=== PATIENT | female | born 1985 | race Caucasian/White ===

== ENCOUNTER 2018-02-18 10:03 | Inpatient (IN) | payer MEDICAID ==
[~2018-02-18 10:03] MED LIST: Acetaminophen 500 MG Tab PO ONE; Dexamethasone 4 MG/ML SDV ONE; Dextrose 5%-Lactated Ringers 1,000 ML IV SCH; Gabapentin 300 MG Cap PO ONE; Glycopyrrolate 0.2 MG/ML 5 ML MDV ONE; Neostigmine Methylsulfate 1 MG/ML 5 ML Syringe ONE; Ondansetron 4 MG/2 ML SDV ONE; Propofol 200 MG/20 ML SDV ONE; Rocuronium 50 MG/5 ML Vial ONE; Scopolamine 1.5 MG Transdermal Patch TOP ONE; Succinylcholine 200 MG/10 ML MDV ONE; cefOXitin 2 GM Vial ONE; cefOXitin 2 GM in Sodium Chloride 0.9% 50 ML IV ONE; fentaNYL 250 MCG/5 ML SDV ONE
[2018-02-18] MEDS ORDERED: Ketamine 500 MG/5 ML MDV IV SCH (11:15)
[2018-02-18] MEDS ORDERED: Lidocaine 0.4%/D5W 2 GM/500 ML BAG IV SCH (11:15)
[2018-02-18] MEDS ORDERED: Ropivacaine 58 ML, Dexamethasone 8 MG, EPINEPHrine 0.4 MG, Sodium Chloride 0.9% 19.6 ML NERVRT SCH ×4 (11:15)
[2018-02-18] MEDS ORDERED: Lidocaine 2% 100 MG/5 ML Syringe IVPUSH ONE (11:15)
[2018-02-18] MEDS ORDERED: Celecoxib 200 MG Cap PO ONE (13:12)
[2018-02-18] MEDS ORDERED: Lactated Ringers 1,000 ML ONE (14:07)
[2018-02-18] MEDS ORDERED: fentaNYL 250 MCG/5 ML SDV ONE (14:42)
[2018-02-18] MEDS ORDERED: Rocuronium 50 MG/5 ML Vial ONE ×2 (14:45)
[2018-02-18] MEDS ORDERED: Labetalol 20 MG/4 ML Syringe ONE (14:50)
[2018-02-18] MEDS ORDERED: hydrALAZINE 20 MG/ML SDV IVPUSH ONE (16:30)
[2018-02-18] MEDS ORDERED: hydrALAZINE 20 MG/ML SDV ONE (16:34)
[2018-02-18] MEDS: hydrALAZINE 20 MG/ML SDV IVPUSH ONE (16:40)
[2018-02-18] MEDS ORDERED: Metoclopramide 10 MG/2 ML SDV IVPUSH PRN (18:00)
[2018-02-18] MEDS ORDERED: Ondansetron 4 MG/2 ML SDV IVPUSH PRN (18:00)
[2018-02-18] MEDS ORDERED: MVI, Adult with Vitamin K 10 ML, Thiamine 200 MG, Chromium/Copper/Mang/Selen/Zn 1 ML in... IV SCH ×4 (18:00)
[2018-02-18] MEDS ORDERED: Labetalol 20 MG/4 ML Syringe IVPUSH PRN (18:00)
[2018-02-18] MEDS ORDERED: diphenhydrAMINE 50 MG/ML SDV IVPUSH PRN (18:00)
[2018-02-18] MEDS ORDERED: hydrOXYzine HCl 100 MG/2 ML SDV IM PRN (18:00)
[2018-02-18] MEDS ORDERED: HYDROmorphone/Normal Saline 15 MG/30 ML PCA IV SCH (18:30)
[2018-02-18] MEDS ORDERED: Pantoprazole 40 MG Vial IVPUSH SCH (20:00)
[2018-02-18] MEDS: Acetaminophen Soln 650 MG/20.3 ML UD Cup PO SCH (20:36)
[2018-02-18] MEDS: Gabapentin 250 MG/5 ML Solution ML 470 ML Bottle PO SCH (20:36)
[2018-02-18] MEDS: cefOXitin 2 GM in Sodium Chloride 0.9% 50 ML IV SCH (20:38)
[2018-02-18] MEDS: Heparin Sodium 5,000 Units/ML Vial SUBCUT SCH (20:45)
[2018-02-19] MEDS: Dextrose 5%-Lactated Ringers 1,000 ML IV SCH ×4 (00:47→21:05)
[2018-02-19] MEDS ORDERED: Iohexol 647 MG/ML 50 ML SDV PO SCH (01:45)
[2018-02-19] MEDS: Acetaminophen Soln 650 MG/20.3 ML UD Cup PO SCH ×4 (02:22→20:48)
[2018-02-19] MEDS: cefOXitin 2 GM in Sodium Chloride 0.9% 50 ML IV SCH ×3 (02:22→14:27)
[2018-02-19] MEDS ORDERED: Naloxone 0.4 MG/ML SDV IV PRN (07:10)
[2018-02-19] MEDS ORDERED: Ondansetron 4 MG Tab.DIS PO PRN (07:20)
[2018-02-19] MEDS: hydrALAZINE 20 MG/ML SDV IVPUSH ONE (07:58)
--- NOTE | 2018-02-19 08:53 | PN ---
DATE OF SERVICE: 02/19/2018 HISTORY OF PRESENT ILLNESS: Haydee is postoperative day #1, her upper GI was normal. She is using a PHYSICAL SCIENCE TECHNICIAN for pain. She rests in between using her PHYSICAL SCIENCE TECHNICIAN, but wakes up with increased amount of pain. Oral intake was not recorded. Urine output 3300. CHRISTOPHER put out 90 mL of a light pink serosanguineous drainage. REVIEW OF SYSTEMS: Remainder of review of systems negative for any pertinent positives and negatives. OBJECTIVE: GENERAL: Haydee is a 33-year-old female. VITAL SIGNS: Last temperature was 02/18/2018 at 2300 hours. Vitals at 0600 hours; pulse 106, respirations 16, blood pressure 130/63, and O2 saturations by pulse oximetry is 94% on 2 L of O2. HEENT: Negative. NECK: Supple. HEART: Regular rate and rhythm. LUNGS: Clear. ABDOMEN: Dressing dry and intact. CHRISTOPHER drain is intact. EXTREMITIES: Without peripheral edema. SCDs are on. ASSESSMENT: Laparoscopic Cain-en-Y gastric bypass surgery, liver biopsy, repair of diaphragmatic hernia for morbid obesity, hepatomegaly and diaphragmatic hernia. Rayo Crow MD, surgeon. Date of surgery 02/18/2018. PLAN: 1. Decrease IV to 100 mL per hour. 2. Step-2 gastric bypass diet with no cereal. 3. Communication orders, 3 med cups per hour or one q.20 minutes record at bedside. 4. Discontinue PHYSICAL SCIENCE TECHNICIAN and continuous pulse ox. 5. Dilaudid 2 mg p.o. q.4 hours p.r.n. pain. 6. Zofran ODT 4 mg p.o. q.4 hours p.r.n. nausea and vomiting. 7. Good pulmonary toilet. Ambulate at least 6 times daily. 8. We will evaluate p.r.n. or in a.m. Natalie Shah PA-C /[id number]
[2018-02-19] MEDS: Gabapentin 250 MG/5 ML Solution ML 470 ML Bottle PO SCH ×3 (09:35→20:48)
[2018-02-19] MEDS: Heparin Sodium 5,000 Units/ML Vial SUBCUT SCH ×2 (09:35→20:47)
[2018-02-19] MEDS: HYDROmorphone 2 MG Tab PO PRN ×3 (10:28→20:47)
[2018-02-19] MEDS: Celecoxib 200 MG Cap PO SCH (10:31)
--- NOTE | 2018-02-19 10:55 | CR ---
UGI wo KUB HISTORY: eval R -Y GBP FINDINGS: After administration of oral contrast, upright views were obtained. Post operative changes gastric bypass. Surgical drains in place. No evidence for leak. Contrast passes freely into proximal small bowel loops. IMPRESSION: No evidence for leak or obstruction.
[2018-02-19] MEDS: SCOPOLAMINE PATCH CHECK TOP SCH (11:39)
[2018-02-19] MEDS ORDERED: MVI, Adult with Vitamin K 10 ML, Thiamine 200 MG, Chromium/Copper/Mang/Selen/Zn 1 ML in... IV SCH ×4 (16:00)
[2018-02-19] MEDS ORDERED: Pantoprazole 40 MG Delayed-Release Granules 1 Packet PO SCH (20:00)
[2018-02-20] MEDS: Acetaminophen Soln 650 MG/20.3 ML UD Cup PO SCH ×2 (02:17→07:57)
[2018-02-20] MEDS: HYDROmorphone 2 MG Tab PO PRN (07:56)
[2018-02-20] MEDS: Celecoxib 200 MG Cap PO SCH (07:57)
[2018-02-20] MEDS: Gabapentin 250 MG/5 ML Solution ML 470 ML Bottle PO SCH (08:32)
[2018-02-20] MEDS: Heparin Sodium 5,000 Units/ML Vial SUBCUT SCH (08:32)
[2018-02-20] MEDS: SCOPOLAMINE PATCH CHECK TOP SCH (08:35)
[2018-02-20] MEDS ORDERED: Cyanocobalamin (Vitamin B12) 1,000 MCG/ML SDV IM ONE (09:00)
[2018-02-20] MEDS ORDERED: Magnesium Hydroxide 400 MG/5 ML Susp 30 ML Cup PO PRN (10:15)
--- NOTE | 2018-02-21 11:42 | DISCH ---
FINAL DIAGNOSES: 1. Morbid obesity. 2. Marked hepatomegaly. 3. Paraesophageal diaphragmatic hernia. 4. History of gastroesophageal reflux disease. 5. Hyperlipidemia. OPERATIVE PROCEDURES: This was done on 02/18/2018, diagnostic laparoscopy with: A. Laparoscopic Cain-en-Y gastric bypass along with gastroenterostomy. B. Chris-Cut needle liver biopsy. C. Repair of paraesophageal diaphragmatic hernia. SUMMARY: This 33-year-old female with a long-standing morbid obesity presenting with desire for proceeding with gastric bypass. After preoperative evaluation and discussion, she wished to proceed and the procedure was done on the date of admission along with liver biopsy diaphragmatic hernia. Postoperatively, no major problems have been noted. She is tolerating the current medical regimen satisfactorily and step-2 diet. She preoperatively was only on Tylenol. She continued to have p.r.n. basis and also given a prescription for Celebrex 200 mg p.o. daily x2 weeks #14 and Dilaudid 2 to 4 mg p.o. q.4 hours p.r.n. pain #40. She will be following up with Natalie Shah at [facility] in [place] on 03/02/2018.
--- NOTE | 2018-02-22 08:53 | OR ---
DATE OF PROCEDURE: 02/18/2018 PREOPERATIVE DIAGNOSIS: Morbid obesity. POSTOPERATIVE DIAGNOSES: 1. Morbid obesity. 2. Marked hepatomegaly. 3. Paraesophageal diaphragmatic hernia. OPERATIVE PROCEDURE: 1. Laparoscopic Cain-en-Y gastric bypass with long-limb gastroenterostomy (75810). 2. Chris-Cut needle liver biopsy (16165). 3. Repair of paraesophageal diaphragmatic hernia (87744). ANESTHESIA: General. HYDROGEN OPERATOR: Natalie Shah PA-C. INDICATIONS FOR PROCEDURE: This is a 33-year-old female presenting with a longstanding history of morbid obesity, increasingly significant comorbidities. After preoperative evaluation and discussion, she wished to proceed with a gastric bypass procedure. Potential risks including bleeding, infection, leaks from various GI tract closures, problems with bowel obstruction over time, as well as possibility of cardiopulmonary, septic, or hemorrhagic complications leading to were all discussed, and the patient wishes to proceed. PROCEDURE IN DETAIL: The patient was taken to the operating room and placed in a supine position. After general endotracheal anesthesia was induced, she was converted to a lithotomy position. An orogastric tube was placed and the abdomen was prepped and draped. At 15 cm inferior and 5 cm left of the xiphoid process, a transverse incision was made, and the peritoneal cavity entered under direct vision with an Optiview trocar and inflated to 15 mmHg pressure with CO2. Laparoscope was then reinserted. No underlying trocar insertion site injuries were seen. Following this, bilateral subcostal transversus abdominis plane blocks were placed with visualization of the needle in the correct plane and injection of the standard solution bilaterally. At this point, 5 additional trocars were placed across the upper mid abdomen and general exploration was undertaken. The patient was noted to have a marked hepatomegaly with liver being grossly fatty infiltrated. Chris-Cut needle biopsies were obtained from left lobe of the liver. Minimal bleeding from the biopsy sites was controlled with electrocautery. The omentum was then divided in the midline up to the level of the transverse colon. This allowed identification of the small bowel to the ligament of Treitz. Small bowel was then traced out 150 cm distal to that point, where it was divided transversely with a PALLAVI stapler. Small bowel was then traced out an additional 150 cm where the [id number] enteroenterostomy was accomplished with internal firing of the Endo-PALLAVI 60 mm stapler. The common opening was then closed transversely with the same stapler and the angles anastomosed, and mesenteric defect approximated with some 0 Ethibond stitch along with fibrin sealant. The divided end of the Cain limb was then from the mesentery first for a few centimeters, which allowed an antecolic position of the Cain limb up to the level of the gastroesophageal junction without tension. At this point, the liver was retracted anteriorly. The patient was noted to have a moderate- sized paraesophageal diaphragmatic hernia, which contained some omentum as well as perigastric fat and a portion of the gastric fundus in a plane anterior to the course of the esophagus. This was reduced. The peritoneum overlying incised and reflected downward. An anterior repair of the diaphragmatic hernia was then accomplished with 0 Ethibond sutures reinforced with PTFE pledgets. The gastrointestinal cavity was inflated to 15 mL and pulled up snugly against the EG junction. The gastric wall over the apex balloon was then marked with electrocautery and balloon catheter deflated and pulled up from the esophagus. The lesser omental tissue adjacent to the gastric cardia was then incised allowing dissection behind the stomach at that level. The pouch formation was initiated with cauterized arnie on the gastric cardia with transverse firing of the PALLAVI stapler. The pouch was then completed with additional firings of PALLAVI stapler up to and through the angle of His. Upon completion of the pouch, both staple lines were noted to be intact. The anvil of a 25 mm EEA stapler was then attached to a Linton sump type tube. The latter was brought down through the mouth and taken out through a small opening in the gastric pouch. This then allowed the anvil likewise to be pulled down to within the gastric pouch. Divided end of the Cain limb was then opened and the main body of the EEA stapler was passed several centimeters into the lumen of small bowel, brought out the anvil and united with it, thus creating the gastrojejunostomy. Upon removal of the stapler, double donuts of mucosa were noted within it and the small bowel was closed off with a vascular staple line. The gastrojejunostomy was reinforced with some 3-0 Vicryl seromuscular stitch along with fibrin sealant. A leak test was conducted with injection of 120 mL of air into the gastric pouch while submerged with cefoxitin-containing saline solution. No leaks were identified. A single Horacio-Whipple drain was then taken out through the left lateral trocar site and positioned adjacent to the gastrojejunostomy and up into the splenic fossa. Trocars were then removed, the peritoneal cavity deflated. The incision was closed with 4-0 Vicryl subcuticular stitch, which was also used to fix the drain. The patient was taken to the recovery room in satisfactory condition. Physician pier master assistant, Natalie Shah, played an essential role in assisting in this case, helping to position the patient, retract structures as needed, as well as suturing and cutting sutures when indicated. Her presence improved patient safety and decreased the operative time. Rayo Crow MD /[id number]
== END 2018-02-20 10:50 | disposition home or self-care (01) | DRG 620 ==
LOC: JP.MS 10:03 → JP.SDS 10:03 → EDSTATUS 11:00 → JP.2SS 16:30
PROVIDERS: ADMIT Surgery; ATTEND Surgery
PROC: 0D164ZA Bypass Stomach to Jejunum, Percutaneous Endoscopic Approach (ICD-10-PCS; principal; 2018-02-18)
PROC: 0FB24ZX Excision of Left Lobe Liver, Percutaneous Endoscopic Approach, Diagnostic (ICD-10-PCS; 2018-02-18)
PROC: 0BQT4ZZ Repair Diaphragm, Percutaneous Endoscopic Approach (ICD-10-PCS; 2018-02-18)
PROC: 3E0T3BZ Introduction of Anesthetic Agent into Peripheral Nerves and Plexi, Percutaneous Approach (ICD-10-PCS; 2018-02-18)
DX: E66.01 Morbid (severe) obesity due to excess calories (principal); K44.0 Diaphragmatic hernia with obstruction, without gangrene; Z68.42 Body mass index [BMI] 45.0-49.9, adult; R16.0 Hepatomegaly, not elsewhere classified; K76.0 Fatty (change of) liver, not elsewhere classified; E78.5 Hyperlipidemia, unspecified; K21.9 Gastro-esophageal reflux disease without esophagitis; Z86.32 Personal history of gestational diabetes; Z97.5 Presence of (intrauterine) contraceptive device
CPT/HCPCS: 36415; 74240; 74240-26; 80053; 83735; 84100; 84703; 85027; 86850; 86900; 86901; 88307; 88313; 94762; A9270-GY; C9113; J0171; J0330; J0360; J0694; J1100; J1170; J1644; J2001; J2405; J2704; J2710; J2795; J3010; J3410; J3411; J3420; J3490; J7030; J7042; J7050; J7120; Q9967

== ENCOUNTER 2021-03-11 05:54 | Day surgery (SDC) | payer MEDICAID ==
[~2021-03-11 05:54] MED LIST changes: -Acetaminophen 500 MG Tab PO ONE; -Dexamethasone 4 MG/ML SDV ONE; -Dextrose 5%-Lactated Ringers 1,000 ML IV SCH; -Gabapentin 300 MG Cap PO ONE; -Glycopyrrolate 0.2 MG/ML 5 ML MDV ONE; +Lactated Ringers 1,000 ML IV ONE; -Neostigmine Methylsulfate 1 MG/ML 5 ML Syringe ONE; -Ondansetron 4 MG/2 ML SDV ONE; -Propofol 200 MG/20 ML SDV ONE; -Rocuronium 50 MG/5 ML Vial ONE; -Scopolamine 1.5 MG Transdermal Patch TOP ONE; -Succinylcholine 200 MG/10 ML MDV ONE; -cefOXitin 2 GM Vial ONE; -cefOXitin 2 GM in Sodium Chloride 0.9% 50 ML IV ONE; -fentaNYL 250 MCG/5 ML SDV ONE
[2021-03-11] MEDS ORDERED: Lactated Ringers 1,000 ML IV ONE (06:45)
[2021-03-11] MEDS ORDERED: Cyanocobalamin (Vitamin B12) 1,000 MCG/ML SDV IM ONE (07:00)
[2021-03-11] MEDS ORDERED: Propofol 200 MG/20 ML SDV ONE (07:07)
[2021-03-11] MEDS ORDERED: Midazolam 1 MG/ML 2 ML SDV ONE (07:07)
[2021-03-11] MEDS ORDERED: fentaNYL 100 MCG/2 ML SDV ONE (07:07)
[2021-03-11] MEDS ORDERED: Glycopyrrolate 0.2 MG/ML 2 ML SDV IVPUSH ONE (07:15)
[2021-03-11] MEDS ORDERED: MVI, Adult with Vitamin K 10 ML, Thiamine 200 MG, Zinc/Copper/Manganese/Selenium 1 ML i... IV ONE ×4 (08:00)
[2021-03-11] MEDS ORDERED: hydrOXYzine HCL 100 MG/2 ML SDV IM ONE (09:28)
[2021-03-11] MEDS ORDERED: ferumoxytoL 510 MG in Sodium Chloride 0.9% 100 ML IV ONE (09:30)
[2021-03-11] MEDS ORDERED: Iopamidol 612 MG/ML 500 ML Multipack Bottle IV ONE (10:50)
[2021-03-11] MEDS ORDERED: Sodium Chloride 0.9% 10 ML Syringe FLUSH ONE (10:50)
--- NOTE | 2021-03-11 11:56 | CT ---
Abdomen Pelvis w Cont CLINICAL HISTORY: Abdominal pain post EGD COMPARISON: None. TECHNIQUE: Transverse scans were obtained from the base of the lungs to the pubic symphysis following oral contrast and IV infusion of contrast.Auto dosage reduction and iterative reconstructiontechniques employed. FINDINGS: Patient is status post gastric bypass with Cain-en-Y. There is some fluid in the excluded portion of the stomach. There is gaseous distention of small bowel. This likely related to recent EGD. The lung bases are clear. There is a 3.2 x 2.8 x 2.9 cm low-attenuation slightly heterogeneous mass in the anterior segment of the right lobe of the liver. There are some internal vessels. The gallbladder is mildly distended. The spleen has normal size and shape. The pancreas shows no mass or inflammatory change. The adrenal glands appear normal bilaterally . The kidneys show no mass, stones or hydronephrosis. The ureters have a normal course and caliber. The bladder has a normal contour. The uterus is enlarged measuring 10.9 x 5.1 x 5.8 cm no free fluid is seen.. The aorta has a normal contour. There is no suspicious retroperitoneal adenopathy. IMPRESSION: Previous gastric bypass with Cain-en-Y Moderate small bowel distention likely related to recent EGD. There is some fecal retention 3.2 x 2.8 x 2.9 cm low-attenuation focus in the right lobe of the liver. This may represent a hemangioma. This should be correlated with ultrasound. Nonspecific distention of the gallbladder
--- NOTE | 2021-03-11 14:25 | OR ---
DATE OF PROCEDURE: 03/11/2021 SURGEON: Rayo Crow MD PREOPERATIVE DIAGNOSIS: Upper abdominal pain. POSTOPERATIVE DIAGNOSIS: Upper abdominal pain associated with normal upper GI endoscopic examination, status post Cain-en-Y gastric bypass. OPERATIVE PROCEDURE: Upper GI endoscopy with biopsy of gastric pouch for CLOtest. ANESTHESIA: IV sedation. INDICATION FOR PROCEDURE: A 36-year-old status post Cain-en-Y gastric bypass in 2018, presenting with some ongoing upper abdominal pain. The patient had been on some ibuprofen previously. Presently, she is on omeprazole 40 mg daily, and despite this, she has ongoing pain. She is referred for upper GI endoscopy at this time. Potential risks including bleeding and perforation were discussed, and the patient wishes to proceed. DETAILS OF PROCEDURE: The patient was taken to the operating room, placed in a left lateral decubitus position. IV sedation was administered, after which the upper GI endoscope was passed orally through the length of the esophagus and into the gastric pouch, from there through the gastrojejunostomy roughly 20 cm into the Cain limb. Overall, the findings were entirely normal. There were no areas of significant inflammation or stricturing along the course of the examination. Biopsies were obtained from the gastric pouch, sent for CLOtest for H pylori. Minimal bleeding from the biopsy site was seen, and the procedure was then concluded. My suspicion at this point is we are dealing with someone with some gallbladder disease. She did have a recent ultrasound which showed some sludge along with suggestion of a thickened gallbladder wall and possible positive Street sign. This process was then by a CT scan of the abdomen, which appeared to be normal with regard to the gallbladder. Her iron was quite low today with a ferritin of 12. Hence, the patient received an iron infusion today. We will plan to proceed with a second iron infusion next week. We will obtain a CCK-stimulated HIDA scan at that time to further evaluate the gallbladder. Otherwise, I will have her continue with Protonix at the present dose. Rayo Crow MD /[id number]
== END 2021-03-11 12:50 | disposition home or self-care (01) ==
LOC: JP.SDS 05:54
PROVIDERS: ATTEND Surgery
DX: R10.10 Upper abdominal pain, unspecified (principal); Z98.84 Bariatric surgery status; E78.5 Hyperlipidemia, unspecified; K21.9 Gastro-esophageal reflux disease without esophagitis
CPT/HCPCS: 43239; 74177; 81025; 87081; J2250; J2704; J3010; J3410; J3411; J3420; J3490; J7120; Q0138; Q9967